=== PATIENT | female | born 1960 | race Hispanic/Latino ===

== ENCOUNTER 2023-03-01 23:19 | Emergency (ER) | payer OTHER ==
[2023-03-01 23:50] LABS: Bilirubin Negative (Negative); Blood, Urine Moderate (Negative); Clarity Cloudy (Clear); Glucose, Urine (Dipstick) Negative (Negative); Ketone, Urine Negative (Negative); Leukocyte Small (Negative); Nitrite Positive (Negative); Protein, Urine (Dipstick) 100 mg/dL (Neg-Trace); Specific Gravity, Urine 1.025 (1.005-1.030)
[2023-03-01 23:51] LABS: Bacteria/HPF 2+ HPF (None Seen); CAUTI Indications for Culture Dysuria,urgency,freq; WBC/HPF Greater than 50 HPF (0-3)
[2023-03-01 23:52] LABS: Urine Culture Reflex Yes Yes
[2023-03-02] MEDS ORDERED: Cipro 250 MG TAB ONE (00:05)
[2023-03-02] MEDS ORDERED: Phenazopyridine HCl 95 MG TAB ONE (00:06)
== END 2023-03-02 00:10 | disposition home or self-care (01) ==
LOC: NAV ERS 23:19
DX: N39.0 Urinary tract infection, site not specified (principal); F17.210 Nicotine dependence, cigarettes, uncomplicated
CPT/HCPCS: 81001; 87077; 87086; 87186; 99283

== ENCOUNTER 2023-03-08 16:13 | Outpatient (CLI) | payer OTHER | END 2023-03-08 16:14 | disposition home or self-care (01) | LOC: NAV RAD 16:13 | PROVIDERS: ATTEND Family Medicine | DX: M25.562 Pain in left knee (principal); M17.12 Unilateral primary osteoarthritis, left knee ==